=== PATIENT | male | born 1955 | race Caucasian/White ===

== ENCOUNTER → 2020-07-14 15:17 | Outpatient (BNVA) | payer MEDICARE, OTHER, SELFPAY | PROVIDERS: Visit Provider Urology | DX: N45.1 Epididymitis (principal) | CPT/HCPCS: 81002; 99212 ==

== ENCOUNTER → 2020-10-06 09:43 | Outpatient (BNVA) | payer MEDICARE, OTHER, SELFPAY | PROVIDERS: Visit Provider Urology | DX: N45.1 Epididymitis (principal); N41.9 Inflammatory disease of prostate, unspecified | CPT/HCPCS: 51798; 81002 ==

== ENCOUNTER → 2020-11-03 10:12 | Outpatient (BNVA) | payer OTHER, SELFPAY | PROVIDERS: PCP Family Medicine; Visit Provider Urology ==

== ENCOUNTER → 2020-12-01 14:12 | Outpatient (BNVA) | payer MEDICARE, OTHER, SELFPAY | PROVIDERS: PCP Family Medicine; Visit Provider Urology | DX: Z13.89 Encounter for screening for other disorder (principal) | CPT/HCPCS: 99212 ==

== ENCOUNTER 2021-03-17 11:15 | Outpatient (AMB) | payer MEDICARE, OTHER, SELFPAY ==
--- NOTE | 2021-03-17 11:23 | MHC.OFFVIS ---
Intake Intake Visit Reasons: 3 month Allergies No Known Allergies Allergy (Verified 10/24/23 09:41) Medication List - Last Reconciled 03/17/21 by Jimmy Branham MD amoxicillin-pot clavulanate 500-125 mg (Augmentin) 1 tab PO DAILY 30 days bimatoprost 0.01% 1 drp ophthalmic-Right BEDTIME brimonidine-timolol 0.2-0.5 % 1 drp ophthalmic-Right BID doxycycline hyclate 100 mg PO BID 28 days gabapentin 300 mg PO BEDTIME 30 days ketorolac 0.5% drps ophthalmic (eye) levofloxacin 500 mg PO DAILY 28 days meloxicam (Mobic) 15 mg PO DAILY 30 days netarsudil 0.02% 1 drp ophthalmic-Right BEDTIME pentoxifylline ER 400 mg PO BID 90 days prednisone 20 mg PO DAILY 5 days sulfamethoxazole-trimethoprim 800-160 mg 1 tab PO BID tadalafil 5 mg PO DAILY 90 days PRN tramadol 50 mg PO TID PRN tramadol 50 mg PO DAILY 30 days PRN trazodone 150 mg PO BEDTIME vitamin E (dl, acetate) 450 mg PO DAILY 90 days HPI HPI Comments History of Present Illness Details Faheme Woods is a very pleasant male. They are a patient of Dr Fontenot Follow-up after epididymal pain Did have microgen from September Did have some improvement Main issue currently is bend penis This is Monika's Discussed use of antioxidant approach Lower Urinary Tract Symptoms: Some response to Levaquin Had failed combination Bactrim and doxycycline Will try combination pain medications gabapentin with tramadol as given to him by his PCP Low-dose Augmentin Current visit is for further evaluation of lower urinary tract symptoms Current treatment includes finasteride. Prostate Symptom Score Moderate (9-19). Symptoms include incomplete emptying, frequency, weak stream, nocturia (>2), and are stable. Results from testing include uroflow was performed Yes with a voided volume of 187 with a maximum flow rate (Q max) 16.3 based on the [place] nomagram this represents the following percentile 15 the following patterns were seen sawtooth Prior Prostate Score moderate. PSA January 2017 3.0 03/19 PSA 4.0 09/20 3.4 09/21 2.9 20% - 09/22 3.4 Prostate volume 30-50gm. Associated conditions CAD No CVA No diabetes No elevated PSA No erectile dysfunction No hematuria No renal insufficiency No urge incontinence No urinary retention No urinary tract infection No Treatment plan review in 4 weeks. [facility] Medical History Glaucoma OA (osteoarthritis) Elevated PSA Epididymitis Erectile disorder due to medical condition in male Feeling of incomplete bladder emptying Benign prostatic hyperplasia with lower urinary tract symptoms Acute epididymitis Surgical History History of eye surgery History of hip surgery History of hernia repair Family History Father No problems noted. Mother No problems noted. Social History Household Members: Spouse Current occupational status: employed Review of Systems Const Denies chills and Denies fever(s) Card Reports no additional complaints and Denies syncope Resp Denies cough GI Denies abdominal pain and Denies heartburn Reports as per HPI and Denies change in libido Neuro Denies syncope Psych Denies change in libido Endo Denies change in libido Physical Exam Const General: cooperative, healthy appearing, comfortable and no acute distress Orientation/consciousness: patient oriented x3 HENMT Face and sinus: Yes normal facial exam Mouth: moist mucous membranes Neck Neck: Yes normal visual inspection, Yes full ROM and Yes trachea midline Chest Chest palpation & inspection: normal inspection of the chest Resp Effort & Inspection: normal respiratory effort, able to speak in complete sentences and no respiratory distress GI Inspection: Yes normal to inspection Back/Spine/Pelvis Cervical Spine: normal cervical lordosis Thoracic/Lumbar Spine: thoracic and lumbar spine normal to inspection Skin General skin exam: no rashes or lesions noted Neuro General: patient oriented x3, gait normal, tone normal and moves all extremities Extrem General: Yes normal to inspection and Yes capillary refill normal Assessment & Plan Assessment & Plan (1) Erectile dysfunction: Code(s): N52.9 - Male erectile dysfunction, unspecified (2) Peyronie's disease: Code(s): N48.6 - Induration penis plastica (3) Prostatitis: Code(s): N41.9 - Inflammatory disease of prostate, unspecified Plan - Jimmy Branham MD: Trial of daily tadalafil Medications: New tadalafil 5 mg PO DAILY PRN 90 tabs 1RF sexual activity 90 days N48.6 Patient Instructions: Imaging studies, laboratory and physical exam results were discussed and reviewed in detail. No major barriers to patient understanding were identified. An opportunity to ask questions regarding the treatment plan was provided. All questions were answered. The patient expressed understanding and agreement with the above treatment plan. The patient is aware they should contact our office by phone for worsening of their current condition or the appearance of new urologic symptoms. Compliance is encouraged with any medications and followup testing that is ordered. It is a privilege to participate in the urologic care of your patient. If you have any questions or concerns regarding treatment for the above conditions, or other urologic issues, please do not hesitate to contact me. The office telephone contact is [phone]. This note is constructed using voice recognition software. While every effort has been made to ensure accuracy hospital security officer errors may have been included. Yours sincerely, Dr Jimmy Branham MD, [facility] - Urology Providers of Expert, Compassionate Care for the Genitourinary System Coding Level of Care Code Est Pt Level 4 (06683) Diagnoses Erectile dysfunction N52.9 Peyronie's disease N48.6 Prostatitis N41.9
== END 2021-03-17 12:17 | disposition home or self-care (01) ==
LOC: HO.HUSH 11:15
PROVIDERS: PCP Family Medicine; Visit Provider Urology
DX: N52.9 Male erectile dysfunction, unspecified (principal); N48.6 Induration penis plastica; N41.9 Inflammatory disease of prostate, unspecified
CPT/HCPCS: 99499

== ENCOUNTER → 2021-03-17 11:15 | Outpatient (BNVA) | payer MEDICARE, OTHER, SELFPAY | PROVIDERS: PCP Family Medicine; Visit Provider Urology ==

== ENCOUNTER → 2021-09-22 10:08 | Outpatient (BNVA) | payer MEDICARE, OTHER, SELFPAY | PROVIDERS: Visit Provider Urology | DX: N41.9 Inflammatory disease of prostate, unspecified (principal); N52.9 Male erectile dysfunction, unspecified; N48.6 Induration penis plastica | CPT/HCPCS: 51798; 99212 ==

== ENCOUNTER → 2022-05-04 10:17 | Outpatient (BNVA) | payer MEDICARE, OTHER, SELFPAY | PROVIDERS: Visit Provider Urology | DX: N52.01 Erectile dysfunction due to arterial insufficiency (principal); N48.6 Induration penis plastica; N41.9 Inflammatory disease of prostate, unspecified | CPT/HCPCS: Q3014 ==

== ENCOUNTER → 2022-10-18 09:32 | Outpatient (BNVA) | payer MEDICARE, OTHER, SELFPAY | PROVIDERS: PCP Physician Assistant Medical; Visit Provider Urology | DX: N52.9 Male erectile dysfunction, unspecified (principal); N48.6 Induration penis plastica | CPT/HCPCS: 99212 ==

== ENCOUNTER 2023-04-23 09:56 | Outpatient (AMB) | payer MEDICARE, OTHER, SELFPAY ==
--- NOTE | 2023-04-23 10:21 | MHC.OFFVIS ---
Intake Intake Visit Reasons: 6M PSA(set) Intake Note: Patient is present for Follow Up PSA Urology Med: Tadalafil Antibiotic Allergy: None Blood Thinner: None Pharmacy: [facility] Allergies No Known Allergies Allergy (Verified 04/23/23 10:22) HPI HPI Comments History of Present Illness Details Faheem Woods is a very pleasant male. He is a patient of Dr Fontenot. He is seen for the following urologic condition - lower urinary tract symptoms - Peyronie's disease - prostatitis Stable response for erectile dysfunction with on demand 20 mg - with daily 5 mg Peyronie's therapy - vitamin-D, pentoxifylline - stable Effective urination - slight PSA creep 6 month follow-up tele visit Lower Urinary Tract Symptoms: Current visit is for further evaluation of lower urinary tract symptoms Current treatment includes no medications Prostate Symptom Score Moderate (9-19). Symptoms include incomplete emptying, frequency, weak stream, nocturia (>2), and are stable. Results from testing include uroflow was performed Yes with a voided volume of 187 with a maximum flow rate (Q max) 16.3 based on the [place] nomagram this represents the following percentile 15 the following patterns were seen saw tooth Prior Prostate Score moderate. PSA January 2017 3.0, 03/19 PSA 4.0, 09/20 3.4, 09/21 2.9 20%, 09/22 3.4, 09/23 3.3, 09/24 3.4, 04/24 3.9 Prostate volume 30-50gm. Erectile dysfunction Previous responsiveness to Viagra Good response to daily 5mg tadlifil Peyronie's Disease Curvature not interfering with activity Pump/pentoxifylline [facility] Medical History Acute epididymitis Benign prostatic hyperplasia with lower urinary tract symptoms Elevated PSA Epididymitis Erectile disorder due to medical condition in male Feeling of incomplete bladder emptying Glaucoma OA (osteoarthritis) Surgical History History of eye surgery History of hernia repair History of hip surgery Family History Father No problems noted. Mother No problems noted. Social History Household Members: Spouse Current occupational status: employed Review of Systems Const Denies chills and Denies fever(s) Card Reports no additional complaints and Denies syncope Resp Denies cough GI Denies abdominal pain and Denies heartburn Reports as per HPI and Denies change in libido Neuro Denies syncope Psych Denies change in libido Endo Denies change in libido Physical Exam Const General: cooperative, healthy appearing, comfortable and no acute distress Orientation/consciousness: patient oriented x3 HEENT Face and sinus: Yes normal facial exam Mouth: moist mucous membranes Neck Neck: Yes normal visual inspection, Yes full ROM and Yes trachea midline Chest Chest palpation & inspection: normal inspection of the chest Resp Effort & Inspection: normal respiratory effort, able to speak in complete sentences and no respiratory distress GI Inspection: Yes normal to inspection Back/Spine/Pelvis Cervical Spine: normal cervical lordosis Thoracic/Lumbar Spine: thoracic and lumbar spine normal to inspection Skin General skin exam: no rashes or lesions noted Neuro General: patient oriented x3, gait normal, tone normal and moves all extremities Extrem General: Yes normal to inspection and Yes capillary refill normal Assessment & Plan Assessment & Plan (1) Peyronie's disease: Code(s): N48.6 - Induration penis plastica (2) Prostatitis: Code(s): N41.9 - Inflammatory disease of prostate, unspecified (3) Erectile dysfunction: Code(s): N52.9 - Male erectile dysfunction, unspecified Plan Six month follow-up Orders: Orders Prostate Specific Antigen 6 Months N41.9 - Inflammatory disease of prostate, unspecified Patient Instructions: Imaging studies, laboratory and physical exam results were discussed and reviewed in detail. No major barriers to patient understanding were identified. An opportunity to ask questions regarding the treatment plan was provided. All questions were answered. The patient expressed understanding and agreement with the above treatment plan. The patient is aware they should contact our office by phone for worsening of their current condition or the appearance of new urologic symptoms. Compliance is encouraged with any medications and followup testing that is ordered. It is a privilege to participate in the urologic care of your patient. If you have any questions or concerns regarding treatment for the above conditions, or other urologic issues, please do not hesitate to contact me. The office telephone contact is [phone]. This note is constructed using voice recognition software. While every effort has been made to ensure accuracy filler shredder errors may have been included. Yours sincerely, Dr Jimmy Branham MD, [facility] - Urology Providers of Expert, Compassionate Care for the Genitourinary System Coding Level of Care Code Est Pt Level 3 (23059) Diagnoses Peyronie's disease N48.6 Prostatitis N41.9 Erectile dysfunction N52.9
== END 2023-04-23 10:46 | disposition home or self-care (01) ==
PROVIDERS: PCP Physician Assistant Medical; Visit Provider Urology
DX: N48.6 Induration penis plastica (principal); N41.9 Inflammatory disease of prostate, unspecified; N52.9 Male erectile dysfunction, unspecified
CPT/HCPCS: 99213

== ENCOUNTER → 2023-04-23 09:56 | Outpatient (BNVA) | payer MEDICARE, OTHER, SELFPAY | PROVIDERS: Visit Provider Urology | DX: N48.6 Induration penis plastica (principal); N41.9 Inflammatory disease of prostate, unspecified; N52.9 Male erectile dysfunction, unspecified | CPT/HCPCS: 99212 ==

== ENCOUNTER 2023-10-24 09:26 | Outpatient (AMB) | payer MEDICARE, OTHER, SELFPAY ==
--- NOTE | 2023-10-24 09:33 | A.OFFVIS_ITS ---
Intake Intake Visit Reasons: 6M PSA(set) Intake Note: Patient presents today for a follow-up Meds- Tadalafil, Pentoxifylline Allergies to Antibiotic- No Known Allergies Blood Thinner- None Residential Program Coordinator Required: No Accompanied by: Self / Same As Patient Allergies No Known Allergies Allergy (Verified 10/24/23 09:41) HPI HPI Comments History of Present Illness Details Faheem Woods is a very pleasant male. He is a patient of Dr Fontenot. He is seen for the following urologic condition - lower urinary tract symptoms - Peyronie's disease with erectile dysfu nction - prostatitis PSA remaining stable LINA stable Stable response for erectile dysfunction with on demand 20 mg - with daily 5 mg Peyronie's therapy - vitamin-D, pentoxifylline - stable Effective urination Twelve month follow-up PSA Lower Urinary Tract Symptoms: Current visit is for further evaluation of lower urinary tract symptoms Current treatment includes no medications Prostate Symptom Score Moderate (9-19). Symptoms include incomplete emptying, frequency, weak stream, nocturia (>2), and are stable. Results from testing include uroflow was performed Yes with a voided volume of 187 with a maximum flow rate (Q max) 16.3 based on the [place] nomagram this represents the following percentile 15 the following patterns were seen saw tooth Prior Prostate Score moderate. PSA January 2017 3.0, 03/19 PSA 4.0, 09/20 3.4, 09/21 2.9 20%, 09/22 3.4, 09/23 3.3, 09/24 3.4, 04/24 3.9, 09/25 3.8 Prostate volume 30-50gm. Erectile dysfunction Previous responsiveness to Viagra Good response to daily 5mg tadlifil with 20 mg on demand Peyronie's Disease Curvature not interfering with activity Pump/pentoxifylline [facility] Medical History Glaucoma OA (osteoarthritis) Elevated PSA Epididymitis Erectile disorder due to medical condition in male Feeling of incomplete bladder emptying Benign prostatic hyperplasia with lower urinary tract symptoms Acute epididymitis Surgical History History of eye surgery History of hip surgery History of hernia repair Family History Father No problems noted. Mother No problems noted. Social History Household Members: Spouse Current occupational status: employed Review of Systems Const Denies chills and Denies fever(s) Card Reports no additional complaints and Denies syncope Resp Denies cough GI Denies abdominal pain and Denies heartburn Reports as per HPI and Denies change in libido Neuro Denies syncope Psych Denies change in libido Endo Denies change in libido Physical Exam Const General: cooperative, healthy appearing, comfortable and no acute distress Orientation/consciousness: patient oriented x3 HEENT Face and sinus: Yes normal facial exam Mouth: moist mucous membranes Neck Neck: Yes normal visual inspection, Yes full ROM and Yes trachea midline Chest Chest palpation & inspection: normal inspection of the chest Resp Effort & Inspection: normal respiratory effort, able to speak in complete sentences and no respiratory distress GI Inspection: Yes normal to inspection Rectal Exam - Male: Yes normal sphincter tone and Yes prostate normal Male General Exam: Yes normal external exam Penis: normal penis and circumcised Meatus: meatus normal Scrotum: scrotum normal Testes: Testes normal Back/Spine/Pelvis Cervical Spine: normal cervical lordosis Thoracic/Lumbar Spine: thoracic and lumbar spine normal to inspection Skin General skin exam: no rashes or lesions noted Neuro General: patient oriented x3, gait normal, tone normal and moves all extremities Extrem General: Yes normal to inspection and Yes capillary refill normal Assessment & Plan Assessment & Plan (1) Erectile dysfunction: Code(s): N52.9 - Male erectile dysfunction, unspecified (2) Peyronie's disease: Code(s): N48.6 - Induration penis plastica (3) Prostatitis: Code(s): N41.9 - Inflammatory disease of prostate, unspecified Plan Twelve month follow-up PSA Orders: Orders Prostate Specific Antigen 364 Days N41.9 - Inflammatory disease of prostate, unspecified Patient Instructions: Imaging studies, laboratory and physical exam results were discussed and reviewed in detail. No major barriers to patient understanding were identified. An opportunity to ask questions regarding the treatment plan was provided. All questions were answered. The patient expressed understanding and agreement with the above treatment plan. The patient is aware they should contact our office by phone for worsening of their current condition or the appearance of new urologic symptoms. Compliance is encouraged with any medications and followup testing that is ordered. It is a privilege to participate in the urologic care of your patient. If you have any questions or concerns regarding treatment for the above conditions, or other urologic issues, please do not hesitate to contact me. The office telephone contact is [phone]. This note is constructed using voice recognition software. While every effort has been made to ensure accuracy irrigator overhead errors may have been included. Yours sincerely, Dr Jimmy Branham MD, [facility] - Urology Providers of Expert, Compassionate Care for the Genitourinary System Coding Level of Care Code Est Pt Level 3 (23736) Diagnoses Erectile dysfunction N52.9 Peyronie's disease N48.6 Prostatitis N41.9
== END 2023-10-24 10:02 | disposition home or self-care (01) ==
PROVIDERS: PCP Physician Assistant Medical; Visit Provider Urology
DX: N52.9 Male erectile dysfunction, unspecified (principal); N48.6 Induration penis plastica; N41.9 Inflammatory disease of prostate, unspecified
CPT/HCPCS: 99213

== ENCOUNTER → 2023-10-24 09:26 | Outpatient (BNVA) | payer MEDICARE, OTHER, SELFPAY | PROVIDERS: PCP Physician Assistant Medical; Visit Provider Urology | DX: N52.9 Male erectile dysfunction, unspecified (principal); N48.6 Induration penis plastica; N41.9 Inflammatory disease of prostate, unspecified | CPT/HCPCS: 99212 ==

== ENCOUNTER 2024-12-23 11:34 | Outpatient (AMB) | payer MEDICARE, OTHER, SELFPAY ==
--- NOTE | 2024-12-23 11:56 | A.OFFVIS_ITS ---
Intake Visit Reasons: yearly follow up/PSA Intake Note: Patient presents today for a 1Y follow-up/PSA Meds- Tadalafil, Pentoxifylline Allergies to Antibiotic- No Known Allergies Blood Thinner- None Allied Health Professional Required: No Accompanied by: Self / Same As Patient Allergies No Known Allergies Allergy (Verified 12/23/24 11:57) HPI Comments Details: Faheem Woods is a very pleasant male. He is a patient of Dr Fontenot. He is seen for the following urologic condition - lower urinary tract symptoms - Peyronie's disease with erectile dysfunction - prostatitis PSA remaining stable 2.8 Relatively recent cardiac bypass Is extremely active runs Myer player Easily able to walk up 2 flights of stairs and 200 yd reflective of metabolic demand for sexual intercourse Medications reviewed Recommendation to discuss use of metoprolol with primary care. This has erectile dysfunction side effects. Consider calcium channel brian such as amlodipine. Restart daily tadalafil and on demand tadalafil Peyronie's therapy - vitamin-D, pentoxifylline - stable Twelve month follow-up PSA Lower Urinary Tract Symptoms: Current visit is for further evaluation of lower urinary tract symptoms Current treatment includes no medications Prostate Symptom Score Moderate (9-19). Symptoms include incomplete emptying, frequency, weak stream, nocturia (>2), and are stable. Results from testing include uroflow was performed Yes with a voided volume of 187 with a maximum flow rate (Q max) 16.3 based on the [place] nomagram this represents the following percentile 15 the following patterns were seen saw tooth Prior Prostate Score moderate. PSA January 2017 3.0, 03/19 PSA 4.0, 09/20 3.4, 09/21 2.9 20%, 09/22 3.4, 09/23 3.3, 09/24 3.4, 04/24 3.9, 09/25 3.8, 11/24 2.8 Prostate volume 30-50gm. Erectile dysfunction Previous responsiveness to Viagra Good response to daily 5mg tadlifil with 20 mg on demand Peyronie's Disease Curvature not interfering with activity Pump/pentoxifylline PFSH Medical History Glaucoma OA (osteoarthritis) Elevated PSA Epididymitis Erectile disorder due to medical condition in male Feeling of incomplete bladder emptying Benign prostatic hyperplasia with lower urinary tract symptoms Acute epididymitis Surgical History History of eye surgery History of hip surgery History of hernia repair Family History Father No problems noted. Mother No problems noted. Social History Household Members: Spouse Current occupational status: employed Review of Systems Const Denies chills and Denies fever(s) Card Reports no additional complaints and Denies syncope Resp Denies cough GI Denies abdominal pain and Denies heartburn Reports as per HPI and Denies change in libido Neuro Denies syncope Psych Denies change in libido Endo Denies change in libido Physical Exam Const General: cooperative, healthy appearing, comfortable and no acute distress Orientation/consciousness: patient oriented x3 HEENT Face and sinus: Yes normal facial exam Mouth: moist mucous membranes Neck Neck: Yes normal visual inspection, Yes full ROM and Yes trachea midline Chest Chest palpation & inspection: normal inspection of the chest Resp Effort & Inspection: normal respiratory effort, able to speak in complete sentences and no respiratory distress GI Inspection: Yes normal to inspection Back/Spine/Pelvis Cervical Spine: normal cervical lordosis Thoracic/Lumbar Spine: thoracic and lumbar spine normal to inspection Skin General skin exam: no rashes or lesions noted Neuro General: patient oriented x3, gait normal, tone normal and moves all extremities Extrem General: Yes normal to inspection and Yes capillary refill normal Assessment & Plan Assessment & Plan (1) Prostatitis: Code(s): N41.9 - Inflammatory disease of prostate, unspecified Category: Medical (2) Peyronie's disease: Code(s): N48.6 - Induration penis plastica Category: Medical (3) Erectile dysfunction: Code(s): N52.9 - Male erectile dysfunction, unspecified Category: Medical Plan Check PSA 12 months May restart tadalafil Hold Peyronie's medications Orders: Orders Prostate Specific Antigen 12 Months N41.9 - Inflammatory disease of prostate, unspecified Medications: Discontinued vitamin E (dl, acetate) Discontinued Reason: Patient Completed Course 450 mg PO DAILY 90 days 90 caps 1RF N48.6 - Induration penis plastica pentoxifylline ER administer with meals Discontinued Reason: Patient Completed Course 400 mg PO BID 90 days 180 tabs 3RF N48.6 - Induration penis plastica Patient Instructions: This note is constructed using voice recognition software. While every effort has been made to ensure accuracy business records manager errors may have been included. Imaging studies, laboratory and physical exam results were discussed and reviewed in detail. No major barriers to patient understanding were identified. An opportunity to ask questions regarding the treatment plan was provided. All questions were answered. The patient expressed understanding and agreement with the above treatment plan. The patient is aware they should contact our office by phone for worsening of their current condition or the appearance of new urologic symptoms. Compliance is encouraged with any medications and followup testing that is ordered. It is a privilege to participate in the urologic care of your patient. If you have any questions or concerns regarding treatment for the above conditions, or other urologic issues, please do not hesitate to contact me. The office telephone contact is [phone]. Sincerely, Dr Jimmy Branham MD, [facility] - Urology Compassionate Specialist Care for the Genitourinary System Coding Level of Care Code Est Pt Level 4 (21194) Complex EM visit Add On G2211 Diagnoses Prostatitis N41.9 Peyronie's disease N48.6 Erectile dysfunction N52.9
== END 2024-12-23 12:30 | disposition home or self-care (01) ==
LOC: HO.HUSH 11:35
PROVIDERS: Visit Provider Urology
DX: N41.9 Inflammatory disease of prostate, unspecified (principal); N48.6 Induration penis plastica; N52.9 Male erectile dysfunction, unspecified
CPT/HCPCS: 99214; G2211

== ENCOUNTER → 2024-12-23 11:34 | Outpatient (BNVA) | payer MEDICARE, OTHER, SELFPAY | PROVIDERS: Visit Provider Urology | DX: N48.6 Induration penis plastica (principal); N52.9 Male erectile dysfunction, unspecified; N41.9 Inflammatory disease of prostate, unspecified | CPT/HCPCS: 99212 ==